=== PATIENT | female | born 1990 | race Caucasian/White ===

== ENCOUNTER 2019-01-21 11:17 | Inpatient (IN) ==
[2019-01-21] MEDS ORDERED: BUTORPHANOL 2 MG/ML VIAL IV PRN (11:30)
[2019-01-21] MEDS ORDERED: OXYTOCIN/LR 20 UNIT/1,000 ML BAG IV SCH (11:30)
[2019-01-21] MEDS ORDERED: LACTATED RINGERS 1,000 ML IV PRN (11:30)
[2019-01-21] MEDS ORDERED: ONDANSETRON 4 MG/2 ML VIAL IV PRN ×2 (11:30→22:32)
[2019-01-21 11:46] LABS: Basophils % 0.2 % (0.0-0.8); Eosinophils # 0.1 10*3/uL (0.0-0.87); Eosinophils % 0.8 % (0.00-10.9); Hematocrit 35.4 VOL% (35.7-47.0); Hemoglobin 11.1 GM/DL (12.0-16.0); Immature Granulocytes % 0.7 %; Lymphocytes # 3.5 10*3/uL (1.4-4.0); Lymphocytes % 25.7 % (21.3-54.2); Mean Corpuscular HGB Conc 31.4 GM/DL (32-36); Mean Corpuscular Hemoglobin 26 PG (27-34); Mean Corpuscular Volume 83.5 FL (87-102); Mean Platelet Volume 10.1 FL (9.6-12.0); Monocytes # 1.8 10*3/uL (0.11-0.8); Monocytes % 13.1 % (1.7-12.7); Neutrophils % 59.5 % (38.7-73.9); Platelet Count 243 T/CUMM (130-400); Red Blood Count 4.24 MC/CUMM (3.8-5.5); Red Cell Distribution Width 14.5 % (9.3-17.3); White Blood Count 13.4 T/CUMM (4-12)
[2019-01-21] MEDS ORDERED: PROMETHAZINE 25 MG/1 ML VIAL IM ONE (11:52)
[2019-01-21] MEDS ORDERED: CITRIC ACID/SODIUM CITRATE 30 ML UDCUP PO ONE (11:52)
[2019-01-21] MEDS ORDERED: ONDANSETRON 4 MG/2 ML VIAL IV ONE (11:52)
[2019-01-21] MEDS ORDERED: FAMOTIDINE 20 MG/2 ML VIAL IV ONE (11:52)
[2019-01-21] MEDS ORDERED: NALOXONE 0.4 MG/ML VIAL IV PRN (11:52)
[2019-01-21] MEDS ORDERED: hydrOXYzine HCL 25 MG/1 ML VIAL IM PRN (11:52)
[2019-01-21] MEDS ORDERED: ePHEDrine 50 MG/ML AMP IV PRN (11:52)
[2019-01-21] MEDS ORDERED: diphenhydrAMINE 50 MG/1 ML VIAL IV PRN ×2 (11:52)
[2019-01-21 11:54] LABS: INR 0.9; PT Patient Result 9.4 SECS; Partial Thromboplastin Time 23.6 SECS (0-40)
[2019-01-21] MEDS ORDERED: fentaNYL 2 MCG/ROPIV 0.2% EPID 100 ML EPIDURAL SCH (12:00)
[2019-01-21 12:23] LABS: Albumin 2.9 G/DL (3.4-5.0); Bilirubin,Total 0.5 MG/DL (0.2-1.0); Calcium 8.5 MG/DL (8.5-10.1); Osmolality,Calculated 269.8 MOS/KG (273-304); Potassium 4.2 MMOL/L (3.5-5.1); Total Protein 7.1 G/DL (6.4-8.3); Uric Acid 4.4 MG/DL (2.6-6.0)
[2019-01-21] MEDS: LACTATED RINGERS 1,000 ML IV SCH ×2 (13:58→21:01)
[2019-01-21 18:31] LABS: Apearance,Urine CLEAR (Clear); Bacteria,Urine Occasional /HPF (Few); Bilirubin,Urine Negative (Negative); Blood, Urine Negative (Negative); Glucose,Urine (UA) Negative (Negative); Ketones,Urine 20 mg/dL (Negative); Mucus,Urine Occasional /LPF (Occasional); Nitrite,Urine Negative (Negative); Protein,Urine Negative; RBC,Urine <1 /HPF (0-4); Urine Color Yellow (Yellow); Urine Specific Gravity 1.016 (1.001-1.035); Urine Urobilinogen < 2.0 EU/DL (0.2-1.0)
[2019-01-21] MEDS ORDERED: miSOPROStol 200 MCG TABLET ONE (21:08)
[2019-01-21] MEDS ORDERED: CARBOPROST TROMETHAMINE 250 MCG/ML AMP IM ONE (21:09)
[2019-01-21] MEDS ORDERED: BENZOCAINE 20%/MENTHOL 0.5% SPRAY 56 GM CAN TOP PRN (22:32)
[2019-01-21] MEDS ORDERED: ACETAMINOPHEN 325 MG TABLET PO PRN (22:32)
[2019-01-21] MEDS ORDERED: MEASLES/MUMPS/RUBELLA VACCINE 0.5 ML VIAL SUBCUT ONE (22:32)
[2019-01-21] MEDS ORDERED: DIPH/TET/ACEL PERT BOOSTER VACCINE 0.5 ML VIAL IM ONE (22:32)
[2019-01-21] MEDS ORDERED: WITCH HAZEL PADS 100/JAR TOP PRN (22:32)
[2019-01-21] MEDS ORDERED: HYDROCORTISONE 2.5% RECTAL CREAM 30 GM TUBE TOP PRN (22:32)
[2019-01-21] MEDS ORDERED: BISACODYL 10 MG SUPP RECTAL PRN (22:32)
[2019-01-21] MEDS ORDERED: OXYTOCIN/LR 20 UNIT/1,000 ML BAG IV ONE (22:32)
[2019-01-21] MEDS ORDERED: LANOLIN 50% CREAM 0.3 OZ TUBE TOP PRN (22:32)
[2019-01-21] MEDS ORDERED: RHO(D) IMMUNE GLOBULIN 300 MCG SYRINGE IM ONE (22:32)
[2019-01-21 23:13] LABS: Cord Arterial Blood HCO3 21.5 MMOL/L
[2019-01-21 23:19] LABS: Cord Venous Blood HCO3 8.6 MMOL/L; Cord Venous Blood PCO2 20.6 MMHG
[2019-01-21 23:21] LABS: Cord Venous Blood PO2 12.4
[2019-01-22] MEDS: oxyCODONE/ACETAMINOPHEN 5-325 MG TABLET PO PRN ×3 (01:46→15:03)
[2019-01-22] MEDS: IBUPROFEN 800 MG TABLET PO PRN ×3 (01:46→15:02)
[2019-01-22 05:22] LABS: Basophils % 0.2 % (0.0-0.8); Eosinophils # 0.1 10*3/uL (0.0-0.87); Eosinophils % 0.4 % (0.00-10.9); Hematocrit 32.5 VOL% (35.7-47.0); Hemoglobin 10.2 GM/DL (12.0-16.0); Immature Granulocytes % 0.6 %; Immature Granulocytes Absolute 0.09 #; Lymphocytes # 2.3 10*3/uL (1.4-4.0); Lymphocytes % 15.7 % (21.3-54.2); Mean Corpuscular HGB Conc 31.4 GM/DL (32-36); Mean Corpuscular Hemoglobin 26 PG (27-34); Mean Corpuscular Volume 82.1 FL (87-102); Mean Platelet Volume 10.7 FL (9.6-12.0); Monocytes # 1.5 10*3/uL (0.11-0.8); Monocytes % 10.4 % (1.7-12.7); Neutrophils # 10.8 10*3/uL (1.4-7.4); Neutrophils % 72.7 % (38.7-73.9); Platelet Count 207 T/CUMM (130-400); Red Blood Count 3.96 MC/CUMM (3.8-5.5); Red Cell Distribution Width 14.2 % (9.3-17.3); White Blood Count 14.9 T/CUMM (4-12)
[2019-01-22] MEDS ORDERED: ALUMINUM/MAGNES/SIMETH MAX STR 30 ML UDCUP PO PRN (06:08)
[2019-01-22] MEDS: DOCUSATE SODIUM 100 MG CAPSULE PO SCH ×2 (08:44→20:29)
[2019-01-22] MEDS ORDERED: AZITHROMYCIN 250 MG TABLET PO SCH (14:30)
[2019-01-22] MEDS: FUROSEMIDE 40 MG TABLET PO SCH ×2 (15:03→21:34)
[2019-01-22] MEDS: FLUTICASONE 50 MCG NASAL SPRAY 16 GM BOTTLE BOTH NARES SCH (15:04)
[2019-01-23] MEDS: IBUPROFEN 800 MG TABLET PO PRN ×3 (02:38→14:28)
[2019-01-23] MEDS: oxyCODONE/ACETAMINOPHEN 5-325 MG TABLET PO PRN ×3 (02:39→14:29)
[2019-01-23] MEDS: FUROSEMIDE 40 MG TABLET PO SCH ×2 (04:00→08:01)
[2019-01-23] MEDS: DOCUSATE SODIUM 100 MG CAPSULE PO SCH (08:01)
[2019-01-23] MEDS: FLUTICASONE 50 MCG NASAL SPRAY 16 GM BOTTLE BOTH NARES SCH (08:02)
[2019-01-23] MEDS ORDERED: ONDANSETRON 4 MG TABLET PO PRN (08:56)
[2019-01-23] MEDS ORDERED: AZITHROMYCIN 250 MG TABLET PO SCH (09:00)
[2019-01-23 15:32] VITALS: BP 139/82
== END 2019-01-23 16:35 | disposition home or self-care (01) | DRG 807 ==
LOC: N.LDOUT 11:17 → N.LD 11:31 → N.OB 01-22 01:18
PROVIDERS: ADMIT Obstetrics & Gynecology; ATTEND Obstetrics & Gynecology